=== PATIENT | male | born 1975 | race Caucasian/White ===

== ENCOUNTER 2017-08-04 18:43 | Inpatient (IN) | payer MEDICAID, MEDICARE ==
[~2017-08-04] VITALS: Ht 180.3 cm; Wt 75.0 kg
[2017-08-04 19:24] LABS: MICROSCOPIC NOT IND
[2017-08-04 19:24] LABS: BASOPHILS # (AUTO) 0.11 x10^3/uL (0-0.1); BASOPHILS % (AUTO) 1 % (0-1); EOSINOPHILS # (AUTO) 0.37 x10^3/uL (0-0.4); EOSINOPHILS % (AUTO) 3 % (1-7); LYMPHOCYTES # (AUTO) 1.92 x10^3/uL (1-3.4); LYMPHOCYTES % (AUTO) 17 % (22-44); MD NO; MEAN CORPUSCULAR HEMOGLOBIN 29.1 pg (27.5-34.5); MEAN CORPUSCULAR VOLUME 85.5 fL (81-97); MEAN PLATELET VOLUME 8.5 fL (7.4-10.4); MONOCYTES # (AUTO) 0.83 x10^3/uL (0.2-0.8); MONOCYTES % (AUTO) 7 % (2-9); NEUTROPHILS # (AUTO) 7.98 x10^3/uL (1.8-6.8); NEUTROPHILS % (AUTO) 71 % (42-75); PLATELET COUNT 376 x10^3/uL (130-400); RED BLOOD COUNT 5.04 x10^6/uL (4.38-5.82); RED CELL DISTRIBUTION WIDTH 14.9 % (9.4-14.8)
[2017-08-04 19:28] LABS: CULTURE INDICATED? NO
[2017-08-04] MEDS ORDERED: OLANZAPINE 5 MG TABLET PO ONE (19:30)
[2017-08-04] MEDS ORDERED: PLEASE ENTER HEIGHT AND WEIGHT MC SCH (19:30)
[2017-08-04] MEDS ORDERED: LORazepam 1MG TABLET PO ONE (19:30)
[2017-08-04] MEDS ORDERED: PLEASE ENTER ALLERGIES MC SCH (19:30)
[2017-08-04] MEDS ORDERED: LORazepam 1MG TABLET ONE (19:31)
[2017-08-04] MEDS ORDERED: OLANZAPINE 5 MG TABLET ONE (19:32)
[2017-08-04 19:35] LABS: ALANINE AMINOTRANSFERASE 41 U/L (12-78); ALBUMIN 3.7 g/dL (3.4-5.0); ANION GAP 8 mmol/L (5-15); CHLORIDE 107 mmol/L (98-107); CREATININE 0.99 mg/dL (0.7-1.3); SALICYLATE LEVEL 1.7 mg/dL (2.8-20.0)
[2017-08-04 19:38] LABS: ALKALINE PHOSPHATASE 134 U/L (45-117); BILIRUBIN,TOTAL 0.4 mg/dL (0.2-1.0); TOTAL PROTEIN 7.8 g/dL (6.4-8.2)
[2017-08-04 19:39] LABS: AMPHETAMINE SCREEN, URINE Negative (Negative); BARBITURATE SCREEN, URINE Negative (Negative); BENZODIAZEPINE SCREEN, URINE Negative (Negative); CANNABINOID SCREEN, URINE Negative (Negative); COCAINE SCREEN, URINE Negative (Negative); METHADONE SCREEN, URINE Negative (Negative); OPIATE SCREEN, URINE Negative (Negative)
[2017-08-04 19:40] LABS: ACETAMINOPHEN < 2 mcg/mL (10-30)
[2017-08-04] MEDS ORDERED: ONDANSETRON ODT 4 MG PO PRN (23:00)
[2017-08-04] MEDS ORDERED: NICOTINE 7 MG/24 HR PATCH.TD24 TD SCH (23:00)
[2017-08-04] MEDS ORDERED: DOCUSATE 100 MG CAPSULE PO PRN (23:00)
[2017-08-04 23:45] VITALS: BP 116/76
[2017-08-05 07:59] VITALS: BP 103/69
[2017-08-05 20:00] VITALS: BP 114/68
[2017-08-05] MEDS: OLANZAPINE 5 MG TABLET PO SCH (20:27)
[2017-08-06 08:00] VITALS: BP 123/73
[2017-08-06 20:00] VITALS: BP 111/77
[2017-08-06] MEDS: OLANZAPINE 5 MG TABLET PO SCH (20:47)
[2017-08-07] MEDS: NICOTINE 7 MG/24 HR PATCH.TD24 TD SCH (08:16)
[2017-08-07 09:08] VITALS: BP 112/73
[2017-08-07 19:55] VITALS: BP 124/72
[2017-08-07] MEDS: OLANZAPINE 5 MG TABLET PO SCH (20:49)
[2017-08-08] MEDS ORDERED: DIPHENHYDRAMINE 50 MG CAPSULE PO ONE (01:30)
[2017-08-08 08:31] VITALS: BP 116/82
[2017-08-08] MEDS: NICOTINE 7 MG/24 HR PATCH.TD24 TD SCH (09:38)
[2017-08-08 20:32] VITALS: BP 109/75
[2017-08-08] MEDS: OLANZAPINE 5 MG TABLET PO SCH (21:15)
[2017-08-09 08:12] VITALS: BP 114/83
[2017-08-09] MEDS: NICOTINE 7 MG/24 HR PATCH.TD24 TD SCH (11:04)
[2017-08-09 19:50] VITALS: BP 112/80
[2017-08-09] MEDS: OLANZAPINE 5 MG TABLET PO SCH (21:58)
[2017-08-10 08:22] LABS: MD NO
[2017-08-10 08:23] LABS: BASOPHILS # (AUTO) 0.05 x10^3/uL (0-0.1); BASOPHILS % (AUTO) 1 % (0-1); EOSINOPHILS # (AUTO) 0.42 x10^3/uL (0-0.4); EOSINOPHILS % (AUTO) 6 % (1-7); LYMPHOCYTES # (AUTO) 1.77 x10^3/uL (1-3.4); LYMPHOCYTES % (AUTO) 24 % (22-44); MEAN CORPUSCULAR HEMOGLOBIN 28.4 pg (27.5-34.5); MEAN CORPUSCULAR HGB CONC 33.6 g/dL (33.2-36.2); MEAN CORPUSCULAR VOLUME 84.7 fL (81-97); MEAN PLATELET VOLUME 7.7 fL (7.4-10.4); MONOCYTES # (AUTO) 0.65 x10^3/uL (0.2-0.8); MONOCYTES % (AUTO) 9 % (2-9); NEUTROPHILS # (AUTO) 4.64 x10^3/uL (1.8-6.8); NEUTROPHILS % (AUTO) 62 % (42-75); PLATELET COUNT 292 x10^3/uL (130-400); RED BLOOD COUNT 5.25 x10^6/uL (4.38-5.82)
[2017-08-10 08:27] LABS: ALANINE AMINOTRANSFERASE 37 U/L (12-78); ALBUMIN 3.5 g/dL (3.4-5.0); ANION GAP 6 mmol/L (5-15); CALCIUM 8.6 mg/dL (8.5-10.1); CHLORIDE 105 mmol/L (98-107)
[2017-08-10] MEDS: NICOTINE 7 MG/24 HR PATCH.TD24 TD SCH (08:27)
[2017-08-10 08:29] LABS: ALKALINE PHOSPHATASE 123 U/L (45-117); BILIRUBIN,TOTAL 0.4 mg/dL (0.2-1.0); TOTAL PROTEIN 7.4 g/dL (6.4-8.2)
[2017-08-10 08:36] VITALS: BP 113/69
[2017-08-10 20:00] VITALS: BP 107/67
[2017-08-10] MEDS: OLANZAPINE 5 MG TABLET PO SCH (21:23)
[2017-08-11 08:18] VITALS: BP 118/83
[2017-08-11] MEDS: NICOTINE 7 MG/24 HR PATCH.TD24 TD SCH (08:31)
[2017-08-11 20:36] VITALS: BP 115/73
[2017-08-11] MEDS: OLANZAPINE 5 MG TABLET PO SCH (21:21)
[2017-08-12 07:30] VITALS: BP 113/74
[2017-08-12] MEDS: NICOTINE 7 MG/24 HR PATCH.TD24 TD SCH (08:35)
[2017-08-12 20:20] VITALS: BP 103/69
[2017-08-12] MEDS: OLANZAPINE 5 MG TABLET PO SCH (20:52)
[2017-08-13 08:00] VITALS: BP 119/80
[2017-08-13] MEDS: NICOTINE 7 MG/24 HR PATCH.TD24 TD SCH (08:20)
[2017-08-13 19:54] VITALS: BP 111/74
[2017-08-13] MEDS: OLANZAPINE 5 MG TABLET PO SCH (20:36)
[2017-08-14 08:30] VITALS: BP 112/79
[2017-08-14] MEDS: NICOTINE 7 MG/24 HR PATCH.TD24 TD SCH (09:05)
[2017-08-14 19:48] VITALS: BP 118/78
[2017-08-14] MEDS: OLANZAPINE 5 MG TABLET PO SCH (20:36)
[2017-08-15 08:25] VITALS: BP 105/63
[2017-08-15] MEDS: NICOTINE 7 MG/24 HR PATCH.TD24 TD SCH (09:17)
[2017-08-15 19:56] VITALS: BP 124/83
[2017-08-15] MEDS: OLANZAPINE 5 MG TABLET PO SCH (21:54)
[2017-08-16 07:56] VITALS: BP 117/81
[2017-08-16] MEDS: NICOTINE 7 MG/24 HR PATCH.TD24 TD SCH (08:05)
[2017-08-16 20:00] VITALS: BP 114/78
[2017-08-16] MEDS: OLANZAPINE 5 MG TABLET PO SCH (21:06)
[2017-08-16] MEDS ORDERED: ALBUTEROL SULFATE 2.5 MG/3 ML ONE (22:17)
[2017-08-16] MEDS ORDERED: ALBUTEROL SULFATE 2.5 MG/3 ML NPPB PRN (22:30)
[2017-08-17 08:05] VITALS: BP 115/76
[2017-08-17] MEDS: NICOTINE 7 MG/24 HR PATCH.TD24 TD SCH (09:00)
[2017-08-17 19:26] VITALS: BP 122/86
[2017-08-17] MEDS: OLANZAPINE 5 MG TABLET PO SCH (20:41)
[2017-08-18 08:33] VITALS: BP 123/72
[2017-08-18] MEDS: NICOTINE 7 MG/24 HR PATCH.TD24 TD SCH (09:00)
[2017-08-18 20:07] VITALS: BP 114/74
[2017-08-18] MEDS: OLANZAPINE 5 MG TABLET PO SCH (20:44)
[2017-08-18] MEDS: DIPHENHYDRAMINE 50 MG CAPSULE PO PRN (23:28)
[2017-08-19] MEDS: NICOTINE 7 MG/24 HR PATCH.TD24 TD SCH (07:14)
[2017-08-19 08:00] VITALS: BP 103/72
[2017-08-19 20:34] VITALS: BP 127/71
[2017-08-19] MEDS: OLANZAPINE 5 MG TABLET PO SCH (20:47)
[2017-08-19] MEDS: DIPHENHYDRAMINE 50 MG CAPSULE PO PRN (22:57)
[2017-08-20 07:50] VITALS: BP 117/80
[2017-08-20] MEDS: NICOTINE 7 MG/24 HR PATCH.TD24 TD SCH (09:00)
[2017-08-20] MEDS: ALBUTEROL SULFATE 2.5 MG/3 ML NPPB PRN (16:30)
[2017-08-20] MEDS: NICOTINE GUM 2 MG BC PRN (17:22)
[2017-08-20] MEDS: OLANZAPINE 5 MG TABLET PO SCH (20:54)
[2017-08-20 21:06] VITALS: BP 125/76
[2017-08-21 08:10] VITALS: BP 119/79
[2017-08-21] MEDS: NICOTINE 7 MG/24 HR PATCH.TD24 TD SCH (09:43)
[2017-08-21] MEDS: NICOTINE GUM 2 MG BC PRN ×3 (10:01→21:04)
[2017-08-21 19:56] VITALS: BP 94/83
[2017-08-21] MEDS: OLANZAPINE 5 MG TABLET PO SCH (21:04)
[2017-08-21] MEDS: ALBUTEROL SULFATE 2.5 MG/3 ML NPPB PRN (21:34)
[2017-08-22 08:00] VITALS: BP 124/75
[2017-08-22] MEDS: NICOTINE 7 MG/24 HR PATCH.TD24 TD SCH (08:39)
[2017-08-22] MEDS: NICOTINE GUM 2 MG BC PRN ×2 (15:45→22:10)
[2017-08-22 20:20] VITALS: BP 111/76
[2017-08-22] MEDS: OLANZAPINE 5 MG TABLET PO SCH (20:38)
[2017-08-22] MEDS: ALBUTEROL SULFATE 2.5 MG/3 ML NPPB PRN (21:10)
[2017-08-22] MEDS: DIPHENHYDRAMINE 50 MG CAPSULE PO PRN (23:12)
[2017-08-23] MEDS ORDERED: LORazepam 1MG TABLET PO ONE (01:00)
[2017-08-23 08:00] VITALS: BP 107/75
[2017-08-23] MEDS: NICOTINE 7 MG/24 HR PATCH.TD24 TD SCH (09:08)
[2017-08-23 19:57] VITALS: BP 111/77
[2017-08-23] MEDS: NICOTINE GUM 2 MG BC PRN (20:04)
[2017-08-23] MEDS: OLANZAPINE 5 MG TABLET PO SCH (21:43)
[2017-08-23] MEDS: DIPHENHYDRAMINE 50 MG CAPSULE PO PRN (21:43)
[2017-08-24] MEDS: NICOTINE 7 MG/24 HR PATCH.TD24 TD SCH (08:34)
[2017-08-24 08:45] VITALS: BP 109/72
[2017-08-24] MEDS: NICOTINE GUM 2 MG BC PRN ×3 (13:13→21:03)
[2017-08-24] MEDS: ALBUTEROL SULFATE 2.5 MG/3 ML NPPB PRN (16:52)
[2017-08-24 19:44] VITALS: BP 122/76
[2017-08-24] MEDS: OLANZAPINE 5 MG TABLET PO SCH (20:22)
[2017-08-25] MEDS: NICOTINE 7 MG/24 HR PATCH.TD24 TD SCH (07:44)
[2017-08-25 08:05] VITALS: BP 118/69
[2017-08-25] MEDS ORDERED: OLAN5TAB9 PO (09:21)
[2017-08-25] MEDS: NICOTINE GUM 2 MG BC PRN (12:25)
== END 2017-08-25 15:28 | disposition home or self-care (01) | DRG 881 ==
LOC: ED 21:37 → EDIP 22:00 → 3E 23:45 → OBSVTOIN 08-16 15:51 → 3E 08-24 13:12
PROVIDERS: ADMIT Internal Medicine; ATTEND Internal Medicine
DX: F32.9 Major depressive disorder, single episode, unspecified (principal); R45.851 Suicidal ideations; Z91.14 Patient's other noncompliance with medication regimen; F17.210 Nicotine dependence, cigarettes, uncomplicated; F41.1 Generalized anxiety disorder; Z91.5 Personal history of self-harm; Z87.81 Personal history of (healed) traumatic fracture; Z88.6 Allergy status to analgesic agent; Z88.3 Allergy status to other anti-infective agents; Z88.0 Allergy status to penicillin; Z88.2 Allergy status to sulfonamides
CPT/HCPCS: 36415; 80053; 80307; 80329; 81003; 84443; 85025; 94640; 99285; G0378; J7613; G0480